=== PATIENT | female | born 1990 | race Caucasian/White ===

== ENCOUNTER 2017-06-11 11:09 | Emergency (ER) | payer SELFPAY ==
[2017-06-11 11:16] VITALS: RESP 18; TEMP 98.5
[2017-06-11] MEDS ORDERED: Naproxen 550 mg Tab PO STA (11:38)
[2017-06-11] MEDS ORDERED: Naproxen 550 mg Tab PO ONE (11:46)
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
--- NOTE | 2017-06-11 12:40 | CT ---
PROCEDURE: CT HEAD WITHOUT CONTRAST. HISTORY: Trauma COMPARISON: None available. TECHNIQUE: Axial computed tomography images were obtained through the head/brain without intravenous contrast. Radiation dose: Total exam DLP = 814.55 mGy-cm. This CT exam was performed using one or more of the following dose reduction techniques: Automated exposure control, adjustment of the mA and/or kV according to patient size, and/or use of iterative reconstruction technique. FINDINGS: HEMORRHAGE: No intracranial hemorrhage. BRAIN: Duran-white matter differentiation is preserved. There is no mass, mass effect or abnormal extra-axial fluid collection. VENTRICLES: The ventricles are normal in size, shape and configuration. CALVARIUM: There is no calvarial fracture or extracranial soft tissue swelling. PARANASAL SINUSES: Predominantly clear. MASTOID AIR CELLS: Predominantly clear. OTHER FINDINGS: None. IMPRESSION: No acute intracranial abnormality.
[2017-06-11 13:13] VITALS: BP 124/70; PULSE 64
[2017-06-11 13:54] VITALS: O2SAT 99
== END 2017-06-11 13:00 | disposition home or self-care (01) ==
LOC: C.ER 11:09
DX: S00.93XA Contusion of unspecified part of head, initial encounter (principal); Y04.0XXA Assault by unarmed brawl or fight, initial encounter